=== PATIENT | female | born 1995 | race Two or more races ===

== ENCOUNTER 2022-08-03 07:24 | Emergency (ER) | payer OTHER ==
[~2022-08-03] VITALS: Ht 180.3 cm; Wt 102.1 kg
== END 2022-08-03 14:56 | disposition home or self-care (01) ==
LOC: ER 07:24
DX: K52.9 Noninfective gastroenteritis and colitis, unspecified (principal)

== ENCOUNTER 2022-09-26 14:07 | Emergency (ER) | payer OTHER ==
[~2022-09-26] VITALS: Ht 180.3 cm; Wt 104.3 kg
[2022-09-26] MEDS ORDERED: AMOX-CLAV 875-1 EACH PO (16:01)
== END 2022-09-26 16:31 | disposition home or self-care (01) ==
LOC: ER 14:07
DX: J03.90 Acute tonsillitis, unspecified (principal)